=== PATIENT | female | born 1990 | race Caucasian/White ===

== ENCOUNTER 2017-05-01 11:34 | Emergency (ER) | payer OTHER ==
[~2017-05-01] VITALS: Ht 162.6 cm; Wt 67.2 kg
[~2017-05-01 11:34] MED LIST: AMOXICILLIN500 MG PO; NAPROSYN500 MG PO; PERCOCET 5/325M1 TAB PO; ULTRAM50 M1 PO
[2017-05-01] MEDS ORDERED: ULTRAM50 M1 PO (12:35)
[2017-05-01] MEDS ORDERED: AMOXICILLIN500 MG PO (12:35)
[2017-05-01 12:41] VITALS: BP 120/84
== END 2017-05-01 12:46 | disposition home or self-care (01) | DRG 159 ==
LOC: ED 11:34
DX: K08.89 Other specified disorders of teeth and supporting structures (principal); F17.210 Nicotine dependence, cigarettes, uncomplicated; K04.7 Periapical abscess without sinus